=== PATIENT | female | born 1975 | race Caucasian/White ===

== ENCOUNTER 2023-11-04 03:25 | Emergency (ER) | payer OTHER ==
[~2023-11-04] VITALS: Ht 160 cm; Wt 104.3 kg
[2023-11-04 03:40] VITALS: BP_SYST 143; PULSE 79; RESP 20; TEMP 97; O2SAT 98
[2023-11-04 04:00] VITALS: BP_SYST 144; PULSE 77; RESP 18; TEMP 97.6; O2SAT 96
== END 2023-11-04 04:00 | disposition home or self-care (01) ==
LOC: SED 03:25
DX: G62.2 Polyneuropathy due to other toxic agents (principal); T36.8X5A Adverse effect of other systemic antibiotics, initial encounter; Y92.89 Other specified places as the place of occurrence of the external cause
CPT/HCPCS: 99281